=== PATIENT | male | born 1995 | race Two or more races ===

== ENCOUNTER 2021-09-30 07:17 | Emergency (ER) | payer MEDICAID, OTHER ==
[~2021-09-30] VITALS: Ht 177.8 cm; Wt 59.0 kg
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
[2021-09-30] MEDS ORDERED: HYDROCODONE/APAP 5/325MG TABLET ONE (07:43)
[2021-09-30] MEDS ORDERED: HYDROCODONE/APAP 5/325MG TABLET PO ONE (08:00)
--- NOTE | 2021-09-30 08:00 | NUR ---
MANAGER MATERIALS MANAGEMENT AT BEDSIDE FOR XRAY.
[2021-09-30] MEDS ORDERED: MORPHINE SULFATE INJ 2 MG/ML DISP.SYRIN ONE (08:26)
[2021-09-30] MEDS ORDERED: MORPHINE SULFATE INJ 4 MG/ML DISP.SYRIN ONE (08:27)
[2021-09-30] MEDS ORDERED: MORPHINE SULFATE INJ 2 MG/ML DISP.SYRIN IM ONE (08:30)
--- NOTE | 2021-09-30 08:49 | NUR ---
CALLED DR.RAD HAMMOND FOR CONSULT.
--- NOTE | 2021-09-30 09:07 | NUR ---
X-RAT TECH AT THE BEDSIDE
--- NOTE | 2021-09-30 09:19 | NUR ---
STARTED A LINE, BLOOD SPECIMEN COLLECTED AND SENT TO THE LAB. THE LINE IS SALINE LOCKED.
--- NOTE | 2021-09-30 09:28 | NUR ---
COVID SWAB DONE AND SENT TO THE LAB
[2021-09-30 09:30] LABS: HEMOGLOBIN 11.3 g/dL (13.5-17.5); MEAN CORPUSCULAR HGB CONC 34 g/dl (31.0-36.0); PLATELET COUNT (AUTO) 285 K/uL (150-450)
[2021-09-30 09:32] LABS: BASOPHILS # (AUTO) 0.2 K/uL (0.0-0.2); EOSINOPHILS % (AUTO) 0.8 % (0.0-6.0); HEMATOCRIT 34 % (39-51); LYMPHOCYTES # (AUTO) 0.3 K/uL (0.8-4.8); LYMPHOCYTES % (AUTO) 3.9 % (20.0-44.0); MEAN CORPUSCULAR VOLUME 93 fL (80-96); MONOCYTES # (AUTO) 0.8 K/uL (0.1-1.30); MONOCYTES % (AUTO) 10.1 % (2.0-12.0); NEUTROPHILS # (AUTO) 6.7 K/uL (1.8-8.9); NEUTROPHILS % (AUTO) 83.2 % (43.0-81.0); RED BLOOD CELL COUNT(AUTO) 3.61 MIL/uL (4.5-6.0)
[2021-09-30 09:39] LABS: ALANINE AMINOTRANSFERASE 21 U/L (12-78); ALBUMIN 3.7 g/dL (3.4-5.0); ALKALINE PHOSPHATASE 92 U/L (46-116); ASPARTATE AMINOTRANSFERASE 27 U/L (15-37); BILIRUBIN,DIRECT 0.3 mg/dL (0.0-0.2); BILIRUBIN,TOTAL 1.5 mg/dL (0.2-1.0); CALCIUM, SERUM 8.5 mg/dL (8.5-10.1); CARBON DIOXIDE 21 mmol/L (21-32); CHLORIDE 106 mmol/L (98-107); GLUCOSE 108 mg/dL (74-106); POTASSIUM 3.9 mmol/L (3.5-5.1); SODIUM SERUM 138 mmol/L (136-145); UREA NITROGEN, BLOOD 22 mg/dL (7-18)
[2021-09-30 09:40] LABS: ALCOHOL, BLOOD < 3 mg/dL (0-0)
--- NOTE | 2021-09-30 09:56 | NUR ---
UNABLE TO PROVIDE URINE SAMPLE YET
--- NOTE | 2021-09-30 10:19 | NUR ---
TEL [phone] DR [facility]ITH [facility] [phone] DURAN
--- NOTE | 2021-09-30 11:04 | NUR ---
URINE COLLECTED AND SENT
[2021-09-30] MEDS ORDERED: HYDROMORPHONE 1 MG/1 ML DISP.SYRIN ONE (11:40)
[2021-09-30] MEDS ORDERED: HYDROMORPHONE 1 MG/1 ML DISP.SYRIN IV ONE (12:00)
--- NOTE | 2021-09-30 12:12 | NUR ---
SENT CLINICALS OF PT TO [facility].
--- NOTE | 2021-09-30 13:21 | NUR ---
NUMBER FOR REPORT [phone] SYDNIE (CHARGE NURSE)
--- NOTE | 2021-09-30 13:26 | NUR ---
REPORT GIVEN TO SYDNIE MUKHERJEE OF [facility]
--- NOTE | 2021-09-30 13:37 | NUR ---
CALLED [facility] AND SET UP BLS TRANSPORT TO [facility] ETA [phone]
[2021-09-30] MEDS ORDERED: FENTANYL PF 100MCG/2ML AMPUL ONE (15:14)
[2021-09-30] MEDS ORDERED: FENTANYL PF 100MCG/2ML AMPUL IV ONE (15:30)
[2021-09-30 15:43] VITALS: BP 105/59
--- NOTE | 2021-09-30 15:43 | NUR ---
REPORT GIVEN TO EMS FOR PT TRANSFER TO [facility].
== END 2021-09-30 15:45 | disposition short-term general hospital (02) ==
LOC: ER 07:19
DX: S82.391A Other fracture of lower end of right tibia, initial encounter for closed fracture (principal); S82.831A Other fracture of upper and lower end of right fibula, initial encounter for closed fracture; W22.8XXA Striking against or struck by other objects, initial encounter; Y93.51 Activity, roller skating (inline) and skateboarding; Y92.89 Other specified places as the place of occurrence of the external cause; Z20.822 Contact with and (suspected) exposure to COVID-19; R94.31 Abnormal electrocardiogram [ECG] [EKG]; R17 Unspecified jaundice
CPT/HCPCS: 29505; 36415; 71045; 73610; 80048; 80076; 80307; 80320; 85025; 87426; 93005; 96372; 96374; 96375; 99285; C9803; J1170; J2270 ×2; J3010; G0480